=== PATIENT | male | born 1980 | race Caucasian/White ===

== ENCOUNTER 2016-07-05 11:45 | Emergency (ER) | payer OTHER ==
--- NOTE | 2016-07-05 15:19 | DIAGNOSTIC IMAGING REPORT ---
PROCEDURE: US VENOUS - RIGHT EXT INDICATION: SWELLING TECHNIQUE: Duplex sonography of the deep venous system in the right lower extremity was performed. Compression and augmentation techniques were used. COMPARISON: None. FINDINGS: Each interrogated segment of deep vein from the common femoral vein into the calf veins demonstrates thrombus in the superficial femoral vein, popliteal vein, and the calf veins. Mobile clot is present in the distal superficial femoral vein. IMPRESSION: 1. Acute deep venous thrombosis in the right lower extremity. Mobile clot in the distal superficial femoral vein.
--- NOTE | 2016-07-05 15:20 | ED CLINICAL REPORT ---
Clinical Report - Physicians/Mid Levels [facility] [address] [place] [address] 07/05/2016 11:48 Patient: JEANETH STALLINGS Time Seen: 12:39; initial patient contact. Arrived- By private vehicle. Historian- patient. HISTORY OF PRESENT ILLNESS Chief Complaint: Injury to right leg. The injury happened about 2 days ago. Occurred at home. Injury secondary to other mechansim (post op x 2 weeks). Patient is experiencing moderate pain. Patient denies injury to the head or neck. REVIEW OF SYSTEMS The patient complains of pain on weight bearing. He has had swelling. No tingling, chest pain, cough or difficulty breathing. He has had calf pain and pedal edema. All systems otherwise negative, except as recorded above. PAST HISTORY ( Clavicle Sx - Right. Right Ankle Sx. -). SOCIAL HISTORY Never smoker. Occasional alcohol use. No drug use. ADDITIONAL NOTES The nursing notes have been reviewed with agreement regarding the chief complaint, PMH and patient medications and allergies. PHYSICAL EXAM Vital Signs: 07/05/2016 12:03 BP: 137/93. HR: 115. RR: 18. O2 saturation: 98%. Temp: 98.6 F. Have been reviewed. Hypertensive. Tachycardic. Respiratory rate normal. Temperature normal. Oxygen saturation normal. Head: Head atraumatic. Eyes: Eyes normal inspection. ENT: Pharynx normal. CVS: Normal heart rate and rhythm. Heart sounds normal. Respiratory: No respiratory distress. Breath sounds normal. Skin: Skin intact. Skin warm and dry. Normal skin color. Extremities: Right leg: moderate tenderness and mild swelling located in the lower leg. Limited weight bearing secondary to pain. Neurovascular intact distally. (Limited exam due to splint and post op status). No erythema. Extremities otherwise negative. Neuro, Vascular and Tendons: Vascular status intact. Sensation intact. Motor intact. Gait: Gait not tested due to pain. Neuro: Oriented X 3. LABS, X-RAYS, AND EKG Lower Extremity Sonography: Positive exam. Abnormal findings consistent with acute deep venous thrombosis in the right common femoral vein and right popliteal vein. Study type: utilized duplex sonography. The exam was performed by a plumbing technician. The study was interpreted by the radiologist and discussed with the radiologist. Prior studies were not available for comparison. Interpretation time: 15:03. PROGRESS AND PROCEDURES Disposition: Discharged home in good condition. Condition: good. CLINICAL IMPRESSION Deep venous thrombosis of the right proximal lower extremity and distal lower extremity. INSTRUCTIONS Your Current Medications: CONTINUE TAKING THE FOLLOWING MEDICATIONS: Ibuprofen Oral. Nausea Med for pain meds*. Oxycodone-Acetaminophen Oral. Prescription Medications: Xarelto 15 mg 1 PO BID Disp # 30 No refills. Follow-up: Follow up with your doctor in about four days. Call for an appointment. Screening today revealed the patient's blood pressure to be in the pre-hypertensive range. The patient should follow up with a primary care provider for blood pressure management. (Electronically signed by Romel Reece Dr. 07/05/2016 22:32)
--- NOTE | 2016-07-05 15:20 | ED NURSING NOTES ---
Clinical Report - Nurses [facility] [address] [place] [address] 07/05/2016 11:48 Patient: JEANETH STALLINGS TRIAGE Triage time 12:03 Jul 05 2016. Acuity: LEVEL 3. Chief Complaint: RIGHT LOWER EXTREMITY PAIN and SWELLING. Alert. No acute distress. JERI COMA SCORE: Jeri Coma Scale: 15- eyes open spontaneously (4); best verbal response- oriented x 4 (5); best motor response- obeys commands (6). --12:11 Ceci Rivera R.N. 12:03 07/05/16. BP: 137/93. HR: 115. RR: 18. O2 saturation: 98%. Temp: 98.6 F. Pain level now 02/03. --12:11 Ceci Rivera R.N. Triage time 12:20. Acuity: LEVEL 4. Chief Complaint: Location of symptoms- (Pt had right ankle surgery on June 25. 2 nights ago he developed posterior right calf pain. His rehab doctor referred him here to R/O DVT.). 12:27 07/05/16. SEPSIS SCREEN: Sepsis Screen. Negative (no infection suspected/documented). JERI COMA SCORE: [place] Coma Scale: 15- eyes open spontaneously (4); best verbal response- oriented x 4 (5); best motor response- obeys commands (6). --12:27 Dyllan Coats R.N. 12:20 07/05/16. BP: 129/78. HR: 96. RR: 16. O2 saturation: 94% on room air. Temp: 98.8 F (oral). Pain level now: 07/06. --12:27 Dyllan Coats R.N. Weight: 113.3 kg stated. Height/Length: 72 inches Per Patient. BMI: 33.9. --12:02 Ceci Rivera R.N. Medications Oxycodone-Acetaminophen Oral. --12:09 Ceci Rivera R.N. Nausea Med for pain meds. --12: Ceci Rivera R.N. Ibuprofen Oral. --12: Ceci Rivera R.N. Medication/allergy information source: the patient. --12:11 Ceci Rivera R.N. Allergies None. --12: Ceci Rivera R.N. History Arrived by private vehicle. Historian: patient. Accompanied by family. Primary physician ([facility] - Keegan Bartlett and Rosalia Osei). ( Right Ankle Ligament Sx on Saturday, seeing PCP PRN but has been having "cramps" in the leg. Taking Potassium because that's what he thought was the problem. However concerned he may have something more serious going on. See's Keegan Bartlett at [facility] for [facility].). No injury occurred. This occurred (2 days of cramping). 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 PAST MEDICAL HX: Tetanus status: up-to-date. Immunizations: seasonal influenza. SOCIAL HX: Never smoker. Occasional alcohol use. No drug use. No infectious disease exposure. FALL RISK ASSESSMENT: Fall risk assessment completed. No fall risk identified. NUTRITIONAL RISK ASSESSMENT: The nutritional risk assessment revealed no deficiencies. FUNCTIONAL ASSESSMENT: Functional assessment performed. using a scooter. --12: Ceci Rivera R.N. Arrived by private vehicle. Treatment FILTER WORKER: None. (RLE is covered with post-op dsg and splint.). SOCIAL HX: Former smoker, end date 2010. Occasional alcohol use. No drug use. ABUSE ASSESSMENT: No report of abuse. --12:27 Dyllan Coats R.N. ADDITIONAL SURGERIES: Clavicle Sx - Right. Right Ankle Sx. --12:10 Ceci Rivera R.N. Interventions ID band on patient. To room. --12:11 Ceci Rivera R.N. ID band on patient. To treatment room. --12:27 Dyllan Coats R.N. PHYSICAL ASSESSMENT 12:29 07/05/16. Ambulatory to room. (uses the one leg scooter). GENERAL / NEURO / PSYCH: Appears in pain. EXTREMITIES: Right leg: (postior calf pain, worse when the leg is dependent or with palpation. Unable to assess completely for errythema due to the splint.). SKIN: Skin intact. Skin is warm. Skin is slightly diaphoretic. --12:29 Dyllan Coats R.N. NURSING PROGRESS NOTES Patient ready for evaluation- ED physician notified. --12:11 Ceci Rivera R.N. 12:29 07/05/16. Reassurance given. Two patient identifiers checked. Call light placed in reach. Bed placed in lowest position. Brakes of bed on. Patient ready for evaluation- chart flagged. --12:29 Dyllan Coats R.N. 12:56 07/05/2016 Site #1 started via IV in the right hand with an 20g angiocath, with aseptic technique and good blood return; one attempt. Blood drawn: rainbow set. Labeled in the presence of the patient and sent to the lab. Saline lock flushed with 10 mL saline. --13:01 Анна Mi R.N. 16:10 07/05/2016 Xarelto * PO 15 mg --16:10 Dorothy Hollingsworth R.N. 16:35 07/05/2016 Xarelto PO Response: no adverse reaction. --16:45 Alphonse Bejarano R.N. DISPOSITION / DISCHARGE 16:24 07/05/16. BP: 115/79. HR: 87. RR: 16. O2 saturation: 94% on room air. Temp: 98.1 F. Pain level now: 08/03. --16:24 Alphonse Bejarano R.N. 16:42 07/05/2016 Site #1 removed upon discharge. Pressure dressing applied. --16:42 Alphonse Bejarano R.N. Departure time: 16:44 Jul 05 2016. Condition at departure: improved. The goals identified in the patient's plan of care were met. No learning barriers present. Discharge instructions provided and reviewed with the patient and family. Reviewed warnings (DVT care and prophylaxis). Reviewed medication(s) side effects, precautions, dosing and course information. Prescription(s) given to the patient. Activity restrictions (minimal use of injured extremity) reviewed. Patient and family verbalized understanding. Written instructions provided in Belarusian. ( Instructed patient to keep RLE elevated.). The patient was discharged by the physician. He was discharged home and accompanied by family. He left the Emergency Department via private vehicle and (Scooter). Family member driving. --16:44 Alphonse Bejarano R.N. Locked/Released at 07/06/2016 7:39 by Dyllan Coats R.N.
--- NOTE | 2016-07-05 15:20 | ED NURSING NOTES ---
Clinical Report - Nurses [facility] [address] [place] [address] 07/05/2016 11:48 Patient: JEANETH STALLINGS TRIAGE Triage time 12:03 Jul 05 2016. Acuity: LEVEL 3. Chief Complaint: RIGHT LOWER EXTREMITY PAIN and SWELLING. Alert. No acute distress. JERI COMA SCORE: Jeri Coma Scale: 15- eyes open spontaneously (4); best verbal response- oriented x 4 (5); best motor response- obeys commands (6). --12:11 Ceci Rivera R.N. 12:03 07/05/16. BP: 137/93. HR: 115. RR: 18. O2 saturation: 98%. Temp: 98.6 F. Pain level now 02/03. --12:11 Ceci Rivera R.N. Triage time 12:20. Acuity: LEVEL 4. Chief Complaint: Location of symptoms- (Pt had right ankle surgery on June 25. 2 nights ago he developed posterior right calf pain. His rehab doctor referred him here to R/O DVT.). 12:27 07/05/16. SEPSIS SCREEN: Sepsis Screen. Negative (no infection suspected/documented). JERI COMA SCORE: [place] Coma Scale: 15- eyes open spontaneously (4); best verbal response- oriented x 4 (5); best motor response- obeys commands (6). --12:27 Dyllan Coats R.N. 12:20 07/05/16. BP: 129/78. HR: 96. RR: 16. O2 saturation: 94% on room air. Temp: 98.8 F (oral). Pain level now: 07/06. --12:27 Dyllan Coats R.N. Weight: 113.3 kg stated. Height/Length: 72 inches Per Patient. BMI: 33.9. --12:02 Ceci Rivera R.N. Medications Oxycodone-Acetaminophen Oral. --12:09 Ceci Rivera R.N. Nausea Med for pain meds. --12: Ceci Rivera R.N. Ibuprofen Oral. --12: Ceci Rivera R.N. Medication/allergy information source: the patient. --12:11 Ceci Rivera R.N. Allergies None. --12: Ceci Rivera R.N. History Arrived by private vehicle. Historian: patient. Accompanied by family. Primary physician ([facility] - Keegan Bartlett and Rosalia Osei). ( Right Ankle Ligament Sx on Saturday, seeing PCP PRN but has been having "cramps" in the leg. Taking Potassium because that's what he thought was the problem. However concerned he may have something more serious going on. See's Keegan Bartlett at [facility] for [facility].). No injury occurred. This occurred (2 days of cramping). 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 PAST MEDICAL HX: Tetanus status: up-to-date. Immunizations: seasonal influenza. SOCIAL HX: Never smoker. Occasional alcohol use. No drug use. No infectious disease exposure. FALL RISK ASSESSMENT: Fall risk assessment completed. No fall risk identified. NUTRITIONAL RISK ASSESSMENT: The nutritional risk assessment revealed no deficiencies. FUNCTIONAL ASSESSMENT: Functional assessment performed. using a scooter. --12: Ceci Rivera R.N. Arrived by private vehicle. Treatment LPN CARE MANAGER: None. (RLE is covered with post-op dsg and splint.). SOCIAL HX: Former smoker, end date 2010. Occasional alcohol use. No drug use. ABUSE ASSESSMENT: No report of abuse. --12:27 Dyllan Coats R.N. ADDITIONAL SURGERIES: Clavicle Sx - Right. Right Ankle Sx. --12:10 Ceci Rivera R.N. Interventions ID band on patient. To room. --12:11 Ceci Rivera R.N. ID band on patient. To treatment room. --12:27 Dyllan Coats R.N. PHYSICAL ASSESSMENT 12:29 07/05/16. Ambulatory to room. (uses the one leg scooter). GENERAL / NEURO / PSYCH: Appears in pain. EXTREMITIES: Right leg: (postior calf pain, worse when the leg is dependent or with palpation. Unable to assess completely for errythema due to the splint.). SKIN: Skin intact. Skin is warm. Skin is slightly diaphoretic. --12:29 Dyllan Coats R.N. NURSING PROGRESS NOTES Patient ready for evaluation- ED physician notified. --12:11 Ceci Rivera R.N. 12:29 07/05/16. Reassurance given. Two patient identifiers checked. Call light placed in reach. Bed placed in lowest position. Brakes of bed on. Patient ready for evaluation- chart flagged. --12:29 Dyllan Coats R.N. 12:56 07/05/2016 Site #1 started via IV in the right hand with an 20g angiocath, with aseptic technique and good blood return; one attempt. Blood drawn: rainbow set. Labeled in the presence of the patient and sent to the lab. Saline lock flushed with 10 mL saline. --13:01 Анна Mi R.N. 16:10 07/05/2016 Xarelto * PO 15 mg --16:10 Dorothy Hollingsworth R.N. 16:35 07/05/2016 Xarelto PO Response: no adverse reaction. --16:45 Alphonse Bejarano R.N. DISPOSITION / DISCHARGE 16:24 07/05/16. BP: 115/79. HR: 87. RR: 16. O2 saturation: 94% on room air. Temp: 98.1 F. Pain level now: 08/03. --16:24 Alphonse Bejarano R.N. 16:42 07/05/2016 Site #1 removed upon discharge. Pressure dressing applied. --16:42 Alphonse Bejarano R.N. Departure time: 16:44 Jul 05 2016. Condition at departure: improved. The goals identified in the patient's plan of care were met. No learning barriers present. Discharge instructions provided and reviewed with the patient and family. Reviewed warnings (DVT care and prophylaxis). Reviewed medication(s) side effects, precautions, dosing and course information. Prescription(s) given to the patient. Activity restrictions (minimal use of injured extremity) reviewed. Patient and family verbalized understanding. Written instructions provided in Uzbek. ( Instructed patient to keep RLE elevated.). The patient was discharged by the physician. He was discharged home and accompanied by family. He left the Emergency Department via private vehicle and (Scooter). Family member driving. --16:44 Alphonse Bejarano R.N. Locked/Released at 07/06/2016 7:39 by Dyllan Coats R.N.
--- NOTE | 2016-07-05 15:20 | ED ORDER SUMMARY ---
..... Patient: JEANETH STALLINGS OrderSheet [facility] VisitID: [id number] [place] [address] 35y, M Registration Date/Time: 07/05/2016 ORDER SHEET Weight: 113.3 kg (stated) Allergies: None GENERAL ORDERS: CBC w Diff Urgent (12:39 07/05/2016 Ricardo Hong) (Ack 13:03 TBergley) (13:12 TBergley) CMP Urgent (12:39 07/05/2016 Ricardo Hong) (Ack 13:03 TBergley) (13:12 TBergley) PT with INR Urgent (12:07/05/2016 Ricardo Hong) (Ack 13:03 TBergley) (13:12 TBergley) PTT Urgent (12:07/05/2016 Ricardo Hong) (Ack 13:03 TBergley) (13:12 TBergley) D-Dimer Urgent (12:39 07/05/2016 Ricardo Hong) (Ack 13:03 TBergley) (13:12 TBergley) US Venous Right (Pos D dimer) Urgent (14:09 07/05/2016 Ricardo Hong) (14:31 TBergley) MEDICATION ORDERS: - (Xarelto 15 mg PO x 1 now) (15:07 07/05/2016 Ricardo Hong) (16:10 LSullivan R.N.) IV FLUIDS: IV Saline Lock (12:39 07/05/2016 Ricardo Hong) (13:32 JSimbeck R.N.) ORDER SHEET NOTES: [Electronically signed by Romel Reece Dr. (22:32 07/05/2016)] [Electronically signed by Dyllan Coats R.N. (07:39 07/06/2016)] [Electronically locked/signed by Dyllan Coats R.N. (07:39 07/06/2016)]
--- NOTE | 2016-07-05 15:20 | ED ORDER SUMMARY ---
..... Patient: JEANETH STALLINGS OrderSheet [facility] VisitID: [id number] [place] [address] 35y, M Registration Date/Time: 07/05/2016 ORDER SHEET Weight: 113.3 kg (stated) Allergies: None GENERAL ORDERS: CBC w Diff Urgent (12:39 07/05/2016 Ricardo Hong) (Ack 13:03 TBergley) (13:12 TBergley) CMP Urgent (12:39 07/05/2016 Ricardo Hong) (Ack 13:03 TBergley) (13:12 TBergley) PT with INR Urgent (12:07/05/2016 Ricardo Hong) (Ack 13:03 TBergley) (13:12 TBergley) PTT Urgent (12:07/05/2016 Ricardo Hong) (Ack 13:03 TBergley) (13:12 TBergley) D-Dimer Urgent (12:39 07/05/2016 Ricardo Hong) (Ack 13:03 TBergley) (13:12 TBergley) US Venous Right (Pos D dimer) Urgent (14:09 07/05/2016 Ricardo Hong) (14:31 TBergley) MEDICATION ORDERS: - (Xarelto 15 mg PO x 1 now) (15:07 07/05/2016 Ricardo Hong) (16:10 LSullivan R.N.) IV FLUIDS: IV Saline Lock (12:39 07/05/2016 Ricardo Hong) (13:32 JSimbeck R.N.) ORDER SHEET NOTES: [Electronically signed by Romel Reece Dr. (22:32 07/05/2016)] [Electronically signed by Dyllan Coats R.N. (07:39 07/06/2016)] [Electronically locked/signed by Dyllan Coats R.N. (07:39 07/06/2016)]
--- NOTE | 2016-07-05 15:20 | ED CLINICAL REPORT ---
Clinical Report - Physicians/Mid Levels [facility] [address] [place] [address] 07/05/2016 11:48 Patient: JEANETH STALLINGS Time Seen: 12:39; initial patient contact. Arrived- By private vehicle. Historian- patient. HISTORY OF PRESENT ILLNESS Chief Complaint: Injury to right leg. The injury happened about 2 days ago. Occurred at home. Injury secondary to other mechansim (post op x 2 weeks). Patient is experiencing moderate pain. Patient denies injury to the head or neck. REVIEW OF SYSTEMS The patient complains of pain on weight bearing. He has had swelling. No tingling, chest pain, cough or difficulty breathing. He has had calf pain and pedal edema. All systems otherwise negative, except as recorded above. PAST HISTORY ( Clavicle Sx - Right. Right Ankle Sx. -). SOCIAL HISTORY Never smoker. Occasional alcohol use. No drug use. ADDITIONAL NOTES The nursing notes have been reviewed with agreement regarding the chief complaint, PMH and patient medications and allergies. PHYSICAL EXAM Vital Signs: 07/05/2016 12:03 BP: 137/93. HR: 115. RR: 18. O2 saturation: 98%. Temp: 98.6 F. Have been reviewed. Hypertensive. Tachycardic. Respiratory rate normal. Temperature normal. Oxygen saturation normal. Head: Head atraumatic. Eyes: Eyes normal inspection. ENT: Pharynx normal. CVS: Normal heart rate and rhythm. Heart sounds normal. Respiratory: No respiratory distress. Breath sounds normal. Skin: Skin intact. Skin warm and dry. Normal skin color. Extremities: Right leg: moderate tenderness and mild swelling located in the lower leg. Limited weight bearing secondary to pain. Neurovascular intact distally. (Limited exam due to splint and post op status). No erythema. Extremities otherwise negative. Neuro, Vascular and Tendons: Vascular status intact. Sensation intact. Motor intact. Gait: Gait not tested due to pain. Neuro: Oriented X 3. LABS, X-RAYS, AND EKG Lower Extremity Sonography: Positive exam. Abnormal findings consistent with acute deep venous thrombosis in the right common femoral vein and right popliteal vein. Study type: utilized duplex sonography. The exam was performed by a fire control technician b. The study was interpreted by the radiologist and discussed with the radiologist. Prior studies were not available for comparison. Interpretation time: 15:03. PROGRESS AND PROCEDURES Disposition: Discharged home in good condition. Condition: good. CLINICAL IMPRESSION Deep venous thrombosis of the right proximal lower extremity and distal lower extremity. INSTRUCTIONS Your Current Medications: CONTINUE TAKING THE FOLLOWING MEDICATIONS: Ibuprofen Oral. Nausea Med for pain meds*. Oxycodone-Acetaminophen Oral. Prescription Medications: Xarelto 15 mg 1 PO BID Disp # 30 No refills. Follow-up: Follow up with your doctor in about four days. Call for an appointment. Screening today revealed the patient's blood pressure to be in the pre-hypertensive range. The patient should follow up with a primary care provider for blood pressure management. (Electronically signed by Romel Reece Dr. 07/05/2016 22:32)
--- NOTE | 2016-07-06 07:39 | ED DISCHARGE INSTRUCTIONS ---
Patient: JEANETH STALLINGS General Instructions [facility] VisitID: [id number] [place] [address] 35y, M Registration Date/Time: 07/05/2016 Deep venous thrombosis of the right proximal lower extremity and distal lower extremity. INSTRUCTIONS Your Current Medications: CONTINUE TAKING THE FOLLOWING MEDICATIONS: Ibuprofen Oral. Nausea Med for pain meds*. Oxycodone-Acetaminophen Oral. Prescription Medications: Xarelto 15 mg 1 PO BID Disp # 30 No refills. Follow-up: Follow up with your doctor in about four days. Call for an appointment. Screening today revealed the patient's blood pressure to be in the pre-hypertensive range. The patient should follow up with a primary care provider for blood pressure management. ADDITIONAL INFORMATION Deep Vein Thrombosis Deep Vein Thrombosis (DVT) means there is a blood clot in a deep vein of the leg. This may cause redness, swelling, warmth and pain of the leg. If the blood clot grows larger, a piece may break off and go to the lungs (pulmonary embolus) or to the brain (stroke). Factors that increase risk of a DVT include: overweight, smoking, use of estrogen replacement therapy. Prolonged periods without movement (such as long distance travel, wearing a fracture cast, and prolonged bed rest after surgery or during an illness) also increases the risk of a DVT. Home Care: Stay off the affected leg as much as possible during the next week. When sitting or lying down, keep the leg elevated. Compression stockings may be advised to improve blood flow in the lower legs. When resting, move your ankles, toes and knees frequently to stimulate blood flow. You will be prescribed an anti-coagulant medicine (pills or shots). Take it exactly as directed. Follow Up with your doctor as advised. NOTE: A radiologist will review any X-rays that were taken. We will notify you of any new findings that may affect your care. Get Prompt Medical Attention if any of the following occur: Shortness of breath or painful breathing Chest pain, repeated cough or coughing up blood Fever of 100.4F (38C) or higher, or as directed by your healthcare provider Increasing swelling or increasing pain in the leg Spreading redness Unexpected bleeding (nose, gums, cuts, urinary tract, vagina, rectum) You have been given the following additional information: DVT (Electronically signed by Romel Reece Dr. 07/05/2016 22:32)
--- NOTE | 2016-07-06 07:39 | ED MAR SUMMARY ---
..... Medication Administration Record [facility] [address] [place] [address] Patient: JEANETH STALLINGS Visit ID: [id number] 35y, M Weight: 113.3 kg Height/Length: 72 in BMI: 33.9 ALLERGIES: None Given 16:10 07/05/2016 Dorothy Hollingsworth RYoselyn Medication Administered: Xarelto *, Dose: 15 mg * PO. Medication Ordered: - (Xarelto 15 mg PO x 1 now).
--- NOTE | 2016-07-06 07:39 | ED MAR SUMMARY ---
..... Medication Administration Record [facility] [address] [place] [address] Patient: JEANETH STALLINGS Visit ID: [id number] 35y, M Weight: 113.3 kg Height/Length: 72 in BMI: 33.9 ALLERGIES: None Given 16:10 07/05/2016 Dorothy Hollingsworth RYoselyn Medication Administered: Xarelto *, Dose: 15 mg * PO. Medication Ordered: - (Xarelto 15 mg PO x 1 now).
--- NOTE | 2016-07-06 07:39 | ED MED RECONCILIATION SUMMARY ---
Patient: JEANETH STALLINGS Medication Reconciliation Report [facility] VisitID: [id number] [address] [place] [address] 35y, M Registration Date/Time: 07/05/2016 Weight: 113.3 kg Height/Length: 72 in. BMI: 33.9 ALLERGIES: None The patient's Home Medications are listed below: CONTINUE TAKING THE FOLLOWING MEDICATIONS: Ibuprofen Oral Nausea Med for pain meds Oxycodone-Acetaminophen Oral The source(s) of the original Home Medication information: patient The following Medications were given to the patient in the Emergency Department: Xarelto PO 15 mg, administered: 07/05/2016 4:10:00 PM The following Medications were prescribed to the patient: Xarelto 15 mg 1 PO BIDDisp # 30No refills. -- Romel Reece Dr.
--- NOTE | 2016-07-06 07:39 | ED MED RECONCILIATION SUMMARY ---
Patient: JEANETH STALLINGS Medication Reconciliation Report [facility] VisitID: [id number] [address] [place] [address] 35y, M Registration Date/Time: 07/05/2016 Weight: 113.3 kg Height/Length: 72 in. BMI: 33.9 ALLERGIES: None The patient's Home Medications are listed below: CONTINUE TAKING THE FOLLOWING MEDICATIONS: Ibuprofen Oral Nausea Med for pain meds Oxycodone-Acetaminophen Oral The source(s) of the original Home Medication information: patient The following Medications were given to the patient in the Emergency Department: Xarelto PO 15 mg, administered: 07/05/2016 4:10:00 PM The following Medications were prescribed to the patient: Xarelto 15 mg 1 PO BIDDisp # 30No refills. -- Romel Reece Dr.
== END 2016-07-05 16:44 | disposition home or self-care (01) ==
LOC: ED SRH 11:45
DX: I82.4Z1 Acute embolism and thrombosis of unspecified deep veins of right distal lower extremity (principal); Z98.890 Other specified postprocedural states; Z79.891 Long term (current) use of opiate analgesic